=== PATIENT | female | born 1940 | race Caucasian/White ===

== ENCOUNTER 2020-12-28 08:46 | Inpatient (IN) | payer MEDICARE, OTHER ==
[~2020-12-28] VITALS: Ht 165.1 cm; Wt 63.5 kg
[2020-12-28] MEDS ORDERED: QUET25TA3 (08:58)
[2020-12-28] MEDS ORDERED: NORCO (08:58)
--- NOTE | 2020-12-28 09:37 | NUR ---
PT IS IN ROOM #2B. DR STONE EVALUATED THE PT.
[2020-12-28 10:19] LABS: HEMATOCRIT 40.9 % (31.2-41.9); MEAN CORPUSCULAR HEMOGLOBIN 31.7 uug (24.7-32.8); MEAN CORPUSCULAR VOLUME 96.2 fL (75.5-95.3); PLATELET COUNT (AUTO) 264 K/uL (179-408)
[2020-12-28 10:21] LABS: *BILIRUBIN,URIN 1+ (NEGATIVE); *BLOOD, URINE 2+ (NEGATIVE); *CLARITY,URINE CLOUDY (CLEAR); *COLOR,URINE YELLOW (YELLOW); *KETONES,URINE TRACE (NEGATIVE); LEUKOCYTE ESTERASE ,URINE 3+ (NEGATIVE); NITRITE, URINE POSITIVE (NEGATIVE); PH,URINE 5.5 (5.0-8.0); UGLUCOSE NEGATIVE (NEGATIVE)
[2020-12-28 10:49] LABS: BACTERIA,URINE MANY /HPF (NONE SEEN)
[2020-12-28 10:50] LABS: CALCIUM OXALATE CRYSTALS,UR FEW /HPF (NONE SEEN); MUCUS,URINE FEW /LPF (0-FEW)
[2020-12-28 11:37] LABS: CARBON DIOXIDE 28 mmol/L (21-32); CHLORIDE 109 mmol/L (98-107); CREATININE 0.8 mg/dL (0.6-1.3); GLUCOSE 121 mg/dL (74-106); POTASSIUM 3.5 mmol/L (3.5-5.1); UREA NITROGEN, BLOOD 34 mg/dL (7-18)
[2020-12-28 11:44] LABS: ETHANOL < 3 MG/DL (0-0)
[2020-12-28 11:45] LABS: ALANINE AMINOTRANSFERASE 58 U/L (14-59); ALKALINE PHOSPHATASE 142 U/L (50-136); ASPARTATE AMINOTRANSFERASE 57 U/L (15-37); BILIRUBIN,DIRECT 0.2 mg/dL (0.0-0.2); BILIRUBIN,TOTAL 0.6 mg/dL (0.2-1.0); TOTAL PROTEIN, SERUM 7.6 g/dL (6.4-8.2)
[2020-12-28] MEDS ORDERED: ACETAMINOPHEN 325 MG TABLET PO PRN (12:15)
[2020-12-28] MEDS ORDERED: IV NORMAL SALINE 1000 ML BAG IV ONE (12:15)
[2020-12-28] MEDS ORDERED: hydrALAZINE HCL 20 MG/1 ML VIAL IV PRN (12:15)
[2020-12-28] MEDS ORDERED: IV D5 1/2 NS 1000 ML 1,000 ML IV SCH (12:15)
[2020-12-28] MEDS ORDERED: HYDROCODONE/APAP 5-325MG TABLET PO PRN (12:15)
[2020-12-28] MEDS ORDERED: LABETALOL HCL 100 MG/20 ML VIAL IV PRN (12:15)
[2020-12-28] MEDS ORDERED: MAGNESIUM HYDROXIDE 30 ML LIQUID UDC PO PRN (12:15)
[2020-12-28] MEDS ORDERED: ONDANSETRON 4 MG/2 ML VIAL IV PRN (12:15)
[2020-12-28] MEDS: CEFTRIAXONE 1 G in IV DEXTROSE 5% 50 ML IV SCH (12:17)
[2020-12-28] MEDS ORDERED: CEFTRIAXONE /D5W 50ML IVPB **ER PYXIS IV ONE (12:27)
[2020-12-28] MEDS: MORPHINE SULFATE 2 MG/1 ML DISP.SYRIN IV PRN (13:43)
[2020-12-28] MEDS ORDERED: MORPHINE SULFATE 2 MG/1 ML DISP.SYRIN ONE (13:52)
[2020-12-28 13:56] LABS: ACETAMINOPHEN < 2.0 ug/mL (10-30)
[2020-12-28 13:57] LABS: THYROID STIMULATING HORMONE 1.174 mIU/mL (0.358-3.740)
[2020-12-28] MEDS ORDERED: LORAZEPAM 2 MG/1 ML VIAL IV ONE (15:15)
[2020-12-28] MEDS ORDERED: LORAZEPAM 2 MG/1 ML VIAL ONE (15:16)
[2020-12-28] MEDS ORDERED: IV D5 1/2 NS 1000 ML 1,000 ML IV PRN (15:47)
--- NOTE | 2020-12-29 02:55 | NUR ---
Pt resting in bed, w/ both eyes closed, NAD noted.
[2020-12-29 05:43] LABS: HEMATOCRIT 38.6 % (31.2-41.9); MEAN CORPUSCULAR HEMOGLOBIN 32.4 uug (24.7-32.8); MEAN CORPUSCULAR VOLUME 96.3 fL (75.5-95.3); PLATELET COUNT (AUTO) 248 K/uL (179-408)
[2020-12-29 06:03] LABS: CREATININE 0.7 mg/dL (0.6-1.3); PHOSPHOROUS 3.4 mg/dL (2.5-4.9); TOTAL PROTEIN, SERUM 6.8 g/dL (6.4-8.2)
--- NOTE | 2020-12-29 06:26 | NUR ---
Pt out of ER for CT.
--- NOTE | 2020-12-29 06:45 | NUR ---
Pt back to ER from CT.
[2020-12-29] MEDS: CEFTRIAXONE 1 G in IV DEXTROSE 5% 50 ML IV SCH (09:04)
[2020-12-29] MEDS ORDERED: CEFTRIAXONE /D5W 50ML IVPB **ER PYXIS IV ONE (09:06)
[2020-12-29] MEDS ORDERED: POTASSIUM CHLORIDE 100 ML ONE ×2 (10:15→13:16)
[2020-12-29] MEDS: POTASSIUM CHLORIDE 50 ML IV SCH ×5 (10:17→14:09)
[2020-12-29] MEDS: MORPHINE SULFATE 2 MG/1 ML DISP.SYRIN IV PRN ×2 (10:27→18:12)
[2020-12-29] MEDS ORDERED: MORPHINE SULFATE 2 MG/1 ML DISP.SYRIN ONE (10:28)
--- NOTE | 2020-12-29 10:33 | NUR ---
Pt becomes restless, moans and asking for help. C/O pain, unable to point the location or intensity.
--- NOTE | 2020-12-29 12:15 | NUR ---
Patient is resting comfortably in bed with eyes closed, NAD noted.
[2020-12-29] MEDS ORDERED: SULF1TAB48 PO (15:32)
--- NOTE | 2020-12-29 19:00 | NUR ---
PATIENT IN BED SLEEP INTERMITENTLY, NO S/S OF PAIN NO S/S OF SOB NO S/S OF SOB. PATIENT WAS MONITOR CLOSELY, CLIMBS OUT OF BED, RISK FOR FALL AND INJURY.
[2020-12-29 20:09] VITALS: BP 143/72
--- NOTE | 2020-12-29 22:55 | NUR ---
PATIENT AWAKE NO SOB NO CHEST PAIN, ALERT ONLY WITH HER NAME, PATIENT ASSISTED WITH TOILETING, KEPT CLEAN AND DRY.
--- NOTE | 2020-12-29 22:57 | NUR ---
NOTIFY [employer] COMMANDER DUE PATIENT AGITATED, CLIMBS OUT OF BED, ASSISTED PATIENT ON THE RECLINING CHAIR BUT PATIENT BANGS THE TABLE, PAUL HAS NEW ORDER.
[2020-12-29] MEDS ORDERED: LORAZEPAM 2 MG/1 ML VIAL IV PRN (23:00)
--- NOTE | 2020-12-30 | NUR ---
ATIVAN 1MG IV ONCE WAS NOT GIVEN, PATIENT CALM DOWN AT THIS TIME, REDIRECTABLE AT THIS TIME, ASSISTED TO TOILET FOR BLADDER ELIMINATIONS, PATIENT HAD A BM AT THIS TIME, PATIENT HAS CONFUSION UNABLE TO TELL HER NEEDS, FREQUENT VISUAL CHECK DONE, CLIMBS OUT OF BED, RISK FOR FALL AND INJURY. CONT TO MONITOR .
[2020-12-30 00:03] VITALS: BP 127/76
[2020-12-30 04:12] VITALS: BP 160/75
--- NOTE | 2020-12-30 05:46 | NUR ---
PATIENT AWAKE NO SOB NO CHEST PAIN, ASSISTED TO TOILET FOR BLADDER ELIMINATION, PATIENT CONTINENT AND INCONTINENT, PATIENT HAS EPISODE OF HITTING STAFF, BANGING GEIGER, REORIENT PATIENT, PULLED OUT IV LINES, CONT TO MONITOR.
--- NOTE | 2020-12-30 06:24 | NUR ---
PATIENT AWAKE VERBALLY RESPONSIVE, PATIENT HAS LEFT 5TH FINGER BRUISE ALSO FROM FALL FROM HOME, PATIENT ABLE TO MOVE 5TH FINGER WITHOUT DIFFICULTY, CONT TO MONITOR.
[2020-12-30 06:46] LABS: CREATININE 0.9 mg/dL (0.6-1.3); POTASSIUM 3.1 mmol/L (3.5-5.1)
[2020-12-30] MEDS: MORPHINE SULFATE 2 MG/1 ML DISP.SYRIN IV PRN ×2 (06:54→23:31)
[2020-12-30] MEDS: CEFTRIAXONE 1 G in IV DEXTROSE 5% 50 ML IV SCH (08:10)
[2020-12-30 08:13] VITALS: BP 135/89
[2020-12-30] MEDS ORDERED: POTASSIUM CHLORIDE 20 MEQ TAB.PRT.SR PO ONE (08:45)
[2020-12-30 11:26] VITALS: BP 155/93
[2020-12-30 16:00] VITALS: BP 150/98
--- NOTE | 2020-12-30 17:30 | NUR ---
Received patient on her bed, a/o to self. Confuse. Unable to follow commands. Noted with agitation, pulling her gown off and the leads for monitor. High risk for falls. No distress identified. PRN Ativan given in the morning. Frequent safety checks done. She is for discharge, awaiting hospice placement. CM will follow up. Daughter came to visit. Will continue to monitor.
--- NOTE | 2020-12-30 18:38 | NUR ---
Per CM, patient will be discharge tomorrow at 10am under [facility]. Patient will be discharge via ambulance ([facility]) to home. Will endorse to the next shift.
--- NOTE | 2020-12-30 18:47 | NUR ---
Daughter updated regarding the discharge tomorrow. Thankful for the update.
--- NOTE | 2020-12-30 19:30 | NUR ---
RECEIVED PT IN NO ACUTE DISTRESS. IV INTACT. SAFETY AND COMFORT PROVIDED. PT ON ROOM AIR. WILL CONTINUE TO MONITOR.
[2020-12-30 20:00] VITALS: BP 132/72
[2020-12-31] VITALS: BP 130/69
--- NOTE | 2020-12-31 01:40 | NUR ---
PT GIVEN MORPHINE 2MG PRN AT 2331H FOR PAIN. PT RESTLESS AND TRYING TO GET OUT OF THE BED. PT REDIRECTABLE. PT VITAL SIGNS STABLE. WILL CONTINUE TO MONITOR.
[2020-12-31 04:00] VITALS: BP 112/87
--- NOTE | 2020-12-31 05:22 | NUR ---
PT SLEPT INTERMITTENTLY. PT IN NO ACUTE DISTRESS. IV INTACT. PT FORGETFUL BUT NEEDS REDIRECTION. SAFETY AND COMFORT PROVIDED. WILL ENDORSE TO INCOMING NURSE FOR CONTINUITY OF CARE.
[2020-12-31 08:27] VITALS: BP 143/67
--- NOTE | 2020-12-31 08:30 | NUR ---
Spoke with [facility] Pt is to go home with hosp[facility]. 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
[2020-12-31] MEDS: MORPHINE SULFATE 2 MG/1 ML DISP.SYRIN IV PRN (08:51)
[2020-12-31] MEDS: CEFTRIAXONE 1 G in IV DEXTROSE 5% 50 ML IV SCH (08:55)
--- NOTE | 2020-12-31 10:50 | NUR ---
Pt discharge home. Discharge paper sent with patient. Report given to Ambulance. IV taken off. Picture of left forehead taken. Pt is in no acute distress. VSS.
== END 2020-12-31 10:50 | disposition hospice, home (50) | DRG 85 ==
LOC: ER 08:46 → TRANSITION 15:43 → TELE3 12-29 17:23
PROVIDERS: ADMIT Internal Medicine; ATTEND Internal Medicine
DX: S06.5X0A Traumatic subdural hemorrhage without loss of consciousness, initial encounter (principal); A41.9 Sepsis, unspecified organism; G93.49 Other encephalopathy; E44.1 Mild protein-calorie malnutrition; N39.0 Urinary tract infection, site not specified; D68.59 Other primary thrombophilia; M48.56XA Collapsed vertebra, not elsewhere classified, lumbar region, initial encounter for fracture; W06.XXXA Fall from bed, initial encounter; E87.6 Hypokalemia; E86.0 Dehydration; F03.90 Unspecified dementia, unspecified severity, without behavioral disturbance, psychotic disturbance, mood disturbance, and anxiety; I10 Essential (primary) hypertension; Z68.23 Body mass index [BMI] 23.0-23.9, adult; D72.829 Elevated white blood cell count, unspecified; S00.03XA Contusion of scalp, initial encounter; X58.XXXA Exposure to other specified factors, initial encounter; Y92.009 Unspecified place in unspecified non-institutional (private) residence as the place of occurrence of the external cause; Y93.9 Activity, unspecified; I70.0 Atherosclerosis of aorta; Z74.09 Other reduced mobility; R40.2142 Coma scale, eyes open, spontaneous, at arrival to emergency department; R40.2362 Coma scale, best motor response, obeys commands, at arrival to emergency department; R40.2252 Coma scale, best verbal response, oriented, at arrival to emergency department; Z20.822 Contact with and (suspected) exposure to COVID-19; M48.00 Spinal stenosis, site unspecified
CPT/HCPCS: 36415; 51702; 70030-TC; 70450; 71045; 72125; 83605; 84100; 84443; 85025; 87040; 93005; A4663; G0378; G0480; J0696; J2060; J2270; J3480; J3490; J7030; J7060